=== PATIENT | male | born 1985 | race Caucasian/White ===

== ENCOUNTER 2023-08-20 09:46 | Inpatient (IN) | payer SELFPAY ==
[2023-08-20] VITALS (27 sets, daily range): BP systolic 112–151; BP diastolic 71–103; PULSE 76–146; RESP 10–20; TEMP 98–98.6
[~2023-08-20] VITALS: Ht 170.2 cm; Wt 102.5 kg
[2023-08-20 11:00] LABS: CHLORIDE 103 mEq/L (98-107); SODIUM 139 mEq/L (136-145)
[2023-08-20] MEDS: ASPIRIN 325MG TABLET PO ONE (11:01)
[2023-08-20 11:02] LABS: CALCIUM 10.3 mg/dL (8.7-10.4); CARBON DIOXIDE 25 mEq/L (21-32)
[2023-08-20] MEDS: METOPROLOL TARTRATE 5MG/5ML VIAL IV ONE (11:03)
[2023-08-20 11:04] LABS: BASOPHILS % 0.3 % (0.0-2.0); HEMATOCRIT. 49.4 % (42.0-52.0); HEMOGLOBIN. 16.9 g/dL (14.0-18.0); LYMPHOCYTES % 12.1 % (20.0-50.0); MEAN CORPUSCULAR HEMOGLOBIN 28.8 pg (28.0-32.0); MEAN CORPUSCULAR HGB CONC 34.3 g/dL (31.0-37.0); MEAN PLATELET VOLUME 7.9 fl (7.4-10.4); MONOCYTES % 6.1 % (2.0-8.0); NEUTROPHILS % 81.5 % (40.0-76.0); PLATELET 357 x1000/uL (130-400); RED BLOOD CELL COUNT 5.88 mill/uL (4.7-6.1); WHITE BLOOD COUNT 14.7 x1000/uL (4.5-11.0)
[2023-08-20 11:07] LABS: CREATININE 1.2 mg/dL (0.6-1.3); GLUCOSE 122 mg/dL (70-105); UREA NITROGEN BLOOD 10 mg/dL (9-23)
[2023-08-20] MEDS: HEPARIN 5000 UNITS/ML VIAL IV ONE (11:13)
[2023-08-20] MEDS: MORPHINE SULFATE 4 MG/ML INJ (FOR IV/IM USE) IV ONE (11:14)
[2023-08-20 11:24] LABS: TROPONIN I HIGH SENSITIVITY 13306 ng/L (3.0-53)
[2023-08-20] MEDS ORDERED: HEPARIN 1000 UNITS/ML 10ML ONE ×2 (12:10→12:38)
[2023-08-20] MEDS ORDERED: MIDAZOLAM HCL 2 MG/2 ML VIAL ONE ×2 (12:10→12:38)
[2023-08-20] MEDS ORDERED: FENTANYL CITRATE/PF 50MCG/ML 2ML VIAL ONE (12:10)
[2023-08-20] MEDS ORDERED: LIDOCAINE HCL 1% 20ML VIAL ONE (12:11)
[2023-08-20] MEDS ORDERED: IODIXANOL 320MG/ML 100 ML BOTTLE IV ONE ×2 (12:11→12:59)
[2023-08-20] MEDS ORDERED: METOPROLOL TARTRATE 5MG/5ML VIAL IV ONE (12:59)
[2023-08-20] MEDS ORDERED: EPTIFIBATIDE 2 MG/ML 10ML VIAL IV ONE (13:12)
[2023-08-20] MEDS ORDERED: TICAGRELOR 90 MG TABLET PO ONE (13:26)
[2023-08-20] MEDS: MORPHINE SULFATE 2 MG/ML INJ (NOT FOR IM USE) IV PRN (15:50)
[2023-08-20 16:55] LABS: TROPONIN I HIGH SENSITIVITY > 125000 ng/L (3.0-53)
[2023-08-20] MEDS ORDERED: ACETAMINOPHEN 325MG TABLET PO PRN ×2 (19:00)
[2023-08-20] MEDS ORDERED: ONDANSETRON HCL 4MG/2ML INJ IV PRN (19:00)
[2023-08-20] MEDS ORDERED: DIPHENHYDRAMINE 50MG/ML VIAL IV PRN (19:00)
[2023-08-20] MEDS: CARVEDILOL 3.125 MG TABLET PO SCH (20:22)
[2023-08-20] MEDS: TICAGRELOR 90 MG TABLET PO SCH (20:22)
[2023-08-20] MEDS: LOSARTAN 25 MG TABLET PO SCH (20:22)
[2023-08-20] MEDS ORDERED: FUROSEMIDE 40MG TABLET PO SCH (21:00)
[2023-08-21] VITALS (96 sets, daily range): BP systolic 85–125; BP diastolic 31–100; PULSE 73–149; RESP 9–34; TEMP 97.6–98.4
[2023-08-21] MEDS: AMIODARONE 150MG/100ML 100 ML IV NR (02:19)
[2023-08-21] MEDS: AMIODARONE HCL 900 MG in DEXT 5% WATER 482 ML IV PRN (02:44)
[2023-08-21 05:23] LABS: HEMATOCRIT 47.2 % (42.0-52.0); HEMOGLOBIN 16.1 g/dL (14.0-18.0); MEAN CORPUSCULAR HEMOGLOBIN 28.4 pg (28.0-32.0); MEAN CORPUSCULAR HGB CONC 34.2 g/dL (31.0-37.0); MEAN CORPUSCULAR VOLUME 83.1 fL (80.0-94.0); PLATELET 285 x1000/uL (130-400); RED BLOOD CELL COUNT 5.68 mill/uL (4.7-6.1); RED CELL DISTRIBUTION WIDTH 14.1 % (11.6-14.6); WHITE BLOOD COUNT 12.7 x1000/uL (4.5-11.0)
[2023-08-21 05:29] LABS: CARBON DIOXIDE 24 mEq/L (21-32); CHLORIDE 104 mEq/L (98-107); POTASSIUM 3.8 mEq/L (3.5-5.1); SODIUM 137 mEq/L (136-145)
[2023-08-21 05:30] LABS: CALCIUM 9.4 mg/dL (8.7-10.4)
[2023-08-21 05:34] LABS: GLUCOSE 113 mg/dL (70-105)
[2023-08-21 05:35] LABS: UREA NITROGEN BLOOD 9 mg/dL (9-23)
[2023-08-21 05:36] LABS: ALANINE AMINOTRANSFERASE 81 IU/L (10-49); ASPARTATE AMINOTRANSFERASE 243 IU/L (<34)
[2023-08-21 05:37] LABS: ALBUMIN 4.4 g/dL (3.2-4.8); BILIRUBIN TOTAL 1.8 mg/dL (0.1-1.0); PROTEIN TOTAL 7.2 g/dL (6.0-8.3)
[2023-08-21] MEDS: FUROSEMIDE 40MG TABLET PO SCH (07:58)
[2023-08-21] MEDS: PANTOPRAZOLE 40MG DR TABLET PO SCH (07:58)
[2023-08-21] MEDS: ASPIRIN 81MG TABLET PO SCH (08:28)
[2023-08-22] VITALS (49 sets, daily range): BP systolic 66–146; BP diastolic 28–109; PULSE 78–115; RESP 13–40; TEMP 97.7–100
[2023-08-22] MEDS ORDERED: MORPHINE SULFATE 2 MG/ML INJ (NOT FOR IM USE) IV PRN (09:30)
[2023-08-22] MEDS ORDERED: NALOXONE HCL 0.4MG/ML VIAL IV PRN (09:30)
[2023-08-23] VITALS: BP 72/72; PULSE 84; RESP 19; TEMP 99.1
[2023-08-23 04:00] VITALS: BP 103/64; PULSE 107; RESP 19; TEMP 100.4
[2023-08-23 08:00] VITALS: BP 101/66; PULSE 89; RESP 16; TEMP 98.1
[2023-08-23 12:00] VITALS: BP 96/58; PULSE 61; RESP 15; TEMP 98
[2023-08-23 14:53] VITALS: BP 122/76; PULSE 75; TEMP 98.3; O2SAT 98
[2023-08-23] MEDS ORDERED: CLOPIDOGREL 75MG TABLET PO NR (15:15)
[2023-08-24] MEDS ORDERED: CLOPIDOGREL 75MG TABLET PO SCH (09:00)
[2023-08-24] MEDS ORDERED: FAMOTIDINE 20MG TABLET PO SCH (09:00)
== END 2023-08-23 17:29 | disposition home or self-care (01) | DRG 174 ==
LOC: ER 09:46 → CVICU 11:41 → EDBEDREQ 11:51 → EDBEDREQTM 11:51 → 7EST 08-22 18:23
PROVIDERS: ADMIT Internal Medicine; ATTEND Internal Medicine
PROC: 027034Z Dilation of Coronary Artery, One Artery with Drug-eluting Intraluminal Device, Percutaneous Approach (ICD-10-PCS; principal; 2023-08-20)
PROC: 4A023N7 Measurement of Cardiac Sampling and Pressure, Left Heart, Percutaneous Approach (ICD-10-PCS; 2023-08-20)
PROC: B211YZZ Fluoroscopy of Multiple Coronary Arteries using Other Contrast (ICD-10-PCS; 2023-08-20)
PROC: B215YZZ Fluoroscopy of Left Heart using Other Contrast (ICD-10-PCS; 2023-08-20)
PROC: B240ZZ3 Ultrasonography of Single Coronary Artery, Intravascular (ICD-10-PCS; 2023-08-20)
DX: I21.09 ST elevation (STEMI) myocardial infarction involving other coronary artery of anterior wall (principal); I50.41 Acute combined systolic (congestive) and diastolic (congestive) heart failure; I47.20 Ventricular tachycardia, unspecified; Z79.82 Long term (current) use of aspirin; Z79.899 Other long term (current) drug therapy
CPT/HCPCS: 36415; 71045; 80048; 80053; 83735; 84484; 85025; 85027; 85347; 92928; 92978; 93005; 93306; 93458; 99291; C1725; C1726; C1753; C1769; C1874; C1887; C1893; J0282; J1327; J1644; J2250; J2270; J3010; J3490; Q9967; J8499